=== PATIENT | female | born 1990 | race Caucasian/White ===

== ENCOUNTER 2017-01-25 21:42 | Emergency (ER) | payer OTHER ==
[2017-01-25] MEDS ORDERED: IBUPROFEN 800 MG TABLET ONE (23:14)
--- NOTE | 2017-01-26 07:46 | RAD ---
Exam: Three-view right wrist COMPARISON: None INDICATION: Fall, diffuse right wrist pain. FINDINGS: PA, lateral and oblique views of the right wrist were obtained. No apparent soft tissue swelling. Overall normal bone mineralization. Alignment is normal. No fracture is identified. IMPRESSION: No acute osseous abnormality in the right wrist.
== END 2017-01-25 23:26 | disposition home or self-care (01) ==
LOC: ED 21:42
DX: S63.501A Unspecified sprain of right wrist, initial encounter (principal); W10.9XXA Fall (on) (from) unspecified stairs and steps, initial encounter; Y92.9 Unspecified place or not applicable
CPT/HCPCS: 73110; 99283 ×2; 29125; A9270